=== PATIENT | female | born 1930 | race Caucasian/White ===

== ENCOUNTER 2017-04-21 20:41 | Emergency (ER) | payer MEDICARE, OTHER ==
[~2017-04-21] VITALS: Ht 170.2 cm; Wt 84.1 kg
[2017-04-21 20:45] VITALS: BP 155/76; PULSE 80; RESP 16; O2SAT 95
--- NOTE | 2017-04-21 20:58 | ED.REPORT ---
HPI-General Illness Date of Service Apr 21, 2017 ED Provider: Zacarias Alves MD Patient is an 86 year old female with a history of chronic back pain, hypertension and panic attacks who presents to the ED requesting a medication refill of her Clonazepam. She complains of nausea, anxiety and that she is going through withdrawal. Patient states that she ran out of her medication two days ago. The patient reports that she takes [place] for her back pain and her primary care physician is trying to get her off of Xanax but did not give her a taper. She admits to taking more Xanax than she was prescribed resulting in her running out early. Nursing Notes Stated Complaint: NEEDS MEDICATION Chief Complaint: General Complaint Nursing Notes Reviewed: Yes Allergies: Coded Allergies: sertraline (Verified Adverse Reaction, Severe, loss of bowel control, 04/21) General Time Seen by MD: 20:56 Chief Complaint Medication refill Hx Obtained From: Patient Arrived By: Walk-in Sudden in Onset?: Yes Onset Occurred: 2 days ago Symptom Duration: Since onset Recent Healthcare: No recent hospitalization Past Medical History Past Medical History anxiety chronic back pain Reports: Hypertension Social History Drug Use: Xanax Ambulatory Status Walker Review of Systems Full Review of Systems Respiratory: Reports: Shortness of breath GI: Reports: Nausea Psychiatric: Reports: Anxiety Complete sys rev & neg: except as marked. Physical Exam Vital Signs Vital Signs Date Time Temp Pulse Resp B/P Pulse Ox O2 Delivery O2 Flow Rate FiO2 04/21/17 20:45 36.6 80 16 155/76 95 Room Air Initial VS: Reviewed General/Constitutional: Awake, Alert Head / Eyes: Atraumatic, Normocephalic, PERRL, EOMI Respiratory / Chest: Atraumatic, No respiratory distress Upper Extremities Upper Extremity / MS: Atraumatic, Full range of motion Lower Extremity / Pelvis / MS: Atraumatic, Full range of motion Skin: Atraumatic, Color NL, No rash, Warm, Dry Re-Eval/Medical Decision Med Decision/Clinical Course Patient is an 86 year old female with a history of chronic back pain, hypertension and panic attacks who presents to the ED requesting a medication refill of her Clonazepam. She complains of nausea, anxiety and that she is going through withdrawal. Patient states that she ran out of her medication two days ago. The patient reports that she takes [place] for her back pain and her primary care physician is trying to get her off of Xanax but did not give her a taper. She admits to taking more Xanax than she was prescribed resulting in her running out early. Here in the emergency department the patient is quite anxious though otherwise medically stable and afebrile. She has no unstable vital signs, seizure-like activity or evidence of florid benzodiazepine withdrawal. Here in the emergency department she is begging for more Xanax stating that it is "the only thing that makes her feel better". I had a long conversation with the patient explaining why I believe her primary care physician correctly is making the decision to take her off benzodiazepines. Despite my best efforts the patient seems fully dedicated to getting more Xanax. This seems like a very tough situation for her as she is been on benzodiazepines for a very long time and is quite dependent. I am concerned that she may have not adequately tapered off either due to not being prescribed a taper or due to taking more than prescribed. I explained to her that I will not prescribe more benzodiazepines here from the emergency department and that she will have to discuss this further with her primary care doctor. I did however give her 1 dose of Ativan here in the emergency department in order to make sure that she is not going to further withdrawal until she can see her primary care physician tomorrow. At this time see no evidence of any acutely concerning medical process and I feel that she is appropriate for further outpatient management. Prior to discharge follow-up and return precautions were reviewed in detail with the patient who verbalized understanding and agreement with the plan. The patient was discharged in stable condition. Time of Eval: 21:34 Re-Evaluation/Progress Note: Discussed plan for Ativan and discharge. Patient understands and agrees to plan. All questions were addressed. 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 You were given Ativan here today to help you get through your withdrawal tonight. You should follow-up with your primary doctor tomorrow morning regarding your medications. We will not refill narcotic pain medications or benzodiazepines in the ED. Withdrawal from these medications can be dangerous and lead to seizures. If you start to develop increased anxiety, a racing heart, shortness of breath or other concerning signs or symptoms, return to the emergency department. Thank you for letting us partake in your care today. Referrals: Cristiano Philip MD (PCP) [place]go[place] Attestation Portions of this note were transcribed by Sun Burns. I, Dr. Alves personally performed the history, physical exam and medical decision-making; I reviewed and confirmed the accuracy of the information in the transcribed note. Signed by: Ashley Cuellar, 04/21/17 copies to: Cristiano Philip MD, Beck O MD Apr 21, 2017 20:58 Tasha Burns Apr 21, 2017 21:31
[2017-04-21] MEDS ORDERED: LORazepam 1 mg Tablet PO ONE (21:30)
== END 2017-04-21 21:55 | disposition home or self-care (01) ==
LOC: SED 20:41
DX: F41.0 Panic disorder [episodic paroxysmal anxiety] (principal); F41.9 Anxiety disorder, unspecified; F13.230 Sedative, hypnotic or anxiolytic dependence with withdrawal, uncomplicated; I10 Essential (primary) hypertension; G89.29 Other chronic pain; Z76.0 Encounter for issue of repeat prescription; Z88.8 Allergy status to other drugs, medicaments and biological substances

== ENCOUNTER 2017-04-24 21:10 | Emergency (ER) | payer MEDICARE, OTHER ==
[~2017-04-24] VITALS: Ht 170.2 cm; Wt 84.1 kg
[2017-04-24 21:26] VITALS: BP 164/92; PULSE 82; RESP 16; O2SAT 93
[2017-04-24] MEDS ORDERED: Ondansetron 8 mg ODT Tablet PO ONE (23:30)
--- NOTE | 2017-04-24 23:30 | ED.REPORT ---
HPI-General Illness Date of Service Apr 24, 2017 ED Provider: Stephen Guzmán MD Patient is an 86 year old female with a history of anxiety and chronic back pain who presents to the ED complaining of nausea. She denies chest pain, dysuria, fever or diarrhea. Patient reports that her primary care physician has been trying to get her off Xanax and she was given Lexapro, which she took two pills of this morning. The patient states that was her first dose of the medication and thinks that caused her nausea. She states that she took .5mg of her Clonazepam this morning and she also tried to take Zofran at home without relief of her nausea. Nursing Notes Stated Complaint: MEDICINE REACTION? Chief Complaint: General Complaint Nursing Notes Reviewed: Yes Allergies: Coded Allergies: sertraline (Verified Adverse Reaction, Severe, loss of bowel control, 04/24) General Time Seen by MD: 23:15 Chief Complaint Other (nausea) Hx Obtained From: Patient Arrived By: Walk-in Sudden in Onset?: Yes Onset Occurred: 1 - 4 hours ago Context of Onset: Medication reaction Symptom Duration: Since onset Severity: Current: No pain currently Recent Healthcare: Recent doctor visit Past Medical History Past Medical History anxiety chronic back pain Reports: Hypertension Social History Drug Use: Xanax Ambulatory Status Walker Review of Systems Full Review of Systems Constitutional: Denies: Fever Cardiovascular: Denies: Chest pain GI: Reports: Nausea, Denies: Diarrhea, Vomiting Complete sys rev & neg: except as marked. Physical Exam Vital Signs Vital Signs Date Time Temp Pulse Resp B/P Pulse Ox O2 Delivery O2 Flow Rate FiO2 04/25/17 02:16 36.6 86 20 161/86 93 Room Air 04/24/17 21:26 36.8 82 16 164/92 93 Room Air Initial VS: Reviewed General/Constitutional: Awake, Alert Head / Eyes: Atraumatic, Normocephalic Respiratory / Chest: Atraumatic, Breath sounds NL, Breath sounds = bilat, No respiratory distress Cardiovascular: Heart rate NL, Regular rhythm, Heart sounds NL, No gallop, No murmurs, No rubs Abdomen: Atraumatic, Soft, Non-tender, BS normoactive Skin: Atraumatic, Color NL, No rash, Warm, Dry Neurologic: Oriented X3, Speech NL Re-Eval/Medical Decision Time of Eval: 23:23 Re-Evaluation/Progress Note: Discussed additional testing. Patient would just like her nausea to be controlled. Time of Eval: 01:32 Patient Status: Condition improved Re-Evaluation/Progress Note: Discussed plan for discharge. Patient understands and agrees to plan. All questions were addressed. Counseled Regarding: Diagnosis, Lab results, Need for follow-up, When/why to return to ED Discharge & Departure Primary Impression: Nausea Disposition: Home Discharge Condition All VS Reviewed: Yes Condition: Stable Additional Instructions: ED evaluation included interview exam and review of past records. Hold lexapro as it may have caused nausea. May use ondansetron up to 8mg every 8 hours as needed for nausea. Contact your primary care doctor on wednesday for additional advice regardng medications. Return to ED for fevers, chest pain or shortness of breath. Referrals: Cristiano Philip MD (PCP) Ashley Attestation Portions of this note were transcribed by Sun Burns. I, Dr. Guzmán personally performed the history, physical exam and medical decision-making; I reviewed and confirmed the accuracy of the information in the transcribed note. Signed by: Ashley Cuellar, 04/24/17 copies to: Cristiano Philip MD, Donald L MD Apr 24, 2017 23:30 Tasha Bursn Apr 24, 2017 23:35
[2017-04-25 02:16] VITALS: BP 161/86; PULSE 86; RESP 20; O2SAT 93
== END 2017-04-25 02:17 | disposition home or self-care (01) ==
LOC: SED 21:10
DX: R11.0 Nausea (principal); I10 Essential (primary) hypertension; F41.9 Anxiety disorder, unspecified; M54.9 Dorsalgia, unspecified